=== PATIENT | male | born 1995 ===

== ENCOUNTER 2022-02-03 20:55 | Emergency (ER) | payer BC, OTHER ==
[2022-02-03 21:08] VITALS: O2SAT 99
--- NOTE | 2022-02-03 21:37 | ERPHSYRPT ---
- History of Present Illness Historian: patient Exam Limitations: no limitations Patient Subjective Stated Complaint: pt states "I have been having this chest pain for 3 days. I this type of pain last year and it was infection on my chest wall." Triage Nursing Assessment: pt ambulated into the er; pt is axo x4; c/o chest pain; pt states 6/10 pain to chest; clear apical pulse; clear lung sounds in all lobes; strong bebo radial pulse; strong bebo pedal pulse; hypertension; pt denies N/V/D; pt denies trauma to chest; Physician History: 27 yo M w mid-sternal chest pain x3 days. Pain does not radiate, is described as tightness, and is worse w deep breaths. It is 6/10 on scale, and he states that he had similar pain 1-2 years ago diagnosed as costochondritis at [facility]. He has mild dyspnea and denies N/V/diaphoresis. Pt denies HTN/DM/hyperlipidemia but does vape. Timing/Duration: other (3 days) Activities at Onset: rest Quality: tightness Location: substernal Chest Pain Radiation: no radiation Severity of Pain-Max: moderate Severity of Pain-Current: moderate Modifying Factors: Improves With: breathing Associated Symptoms: shortness of breath, hurts to breathe, No nausea, No vomiting, No palpitations, No heartburn, No abdominal pain, No cough, No diaphoresis, No chills, No fever, No fatigue, No weakness, No swelling/lump in chest, No syncope, No rash, No headache, No dizziness, No edema, No back pain Prior Chest Pain/Cardiac Workup: non-cardiac Nitro Today/Relief: no nitro taken today Aspirin Treatment Today: no aspirin today Allergies/Adverse Reactions: No Known Drug Allergies Allergy (Unverified 04/04/15 19:57) Hx Tetanus, Diphtheria Vaccination/Date Given: Yes Hx Influenza Vaccination/Date Given: No Hx Pneumococcal Vaccination/Date Given: No Immunizations Up to Date: Yes Travel Risk - International Travel Have you traveled outside of the country in past 3 weeks: No - Coronavirus Screening Are you exhibiting any of the following symptoms?: No Close contact with a COVID-19 positive Pt in past 14-21 Days: No - Vaccine Status Have you recieved a Covid-19 vaccination: No - Review of Systems Constitutional: No Symptoms Eyes: No Symptoms Ears, Nose, & Throat: No Symptoms Respiratory: No Symptoms, Dyspnea Cardiac: No Symptoms, Chest Pain Abdominal/Gastrointestinal: No Symptoms Genitourinary Symptoms: No Symptoms Musculoskeletal: No Symptoms Skin: No Symptoms Neurological: No Symptoms Psychological: No Symptoms Endocrine: No Symptoms Hematologic/Lymphatic: No Symptoms Immunological/Allergic: No Symptoms - Past Medical History Pertinent Past Medical History: No Neurological History: No Pertinent History ENT History: No Pertinent History Cardiac History: No Pertinent History Endocrine Medical History: No Pertinent History Musculoskeletal History: No Pertinent History GI Medical History: Other History: No Pertinent History Psycho-Social History: Anxiety, Depression Male Reproductive Disorders: No Pertinent History Other Medical History: PYLORIC STENOSIS - Past Surgical History Past Surgical History: Yes Neuro Surgical History: No Pertinent History Cardiac: No Pertinent History Respiratory: No Pertinent History Gastrointestinal: Other Genitourinary: No Pertinent History Musculoskeletal: Orthopedic Surgery Male Surgical History: No Pertinent History Other Surgical History: pyloric stenosis repair - deviated septum - Social History Smoking Status: Former smoker Exposure to second hand smoke: No Drug Use: none Patient Lives Alone: No - Nursing Vital Signs Nursing Vital Signs: Initial Vital Signs Temperature 98.7 F 02/03/22 20:57 Pulse Rate 88 02/03/22 20:57 Respiratory Rate 14 02/03/22 20:57 Blood Pressure 154/86 02/03/22 20:57 O2 Sat by Pulse Oximetry 99 02/03/22 20:57 Pain Scale Pain Intensity 4 Hypertensive - Physical Exam General Appearance: no apparent distress Eye Exam: PERRL/EOMI, eyes nml inspection Ears, Nose, Throat Exam: normal ENT inspection, TMs normal, pharynx normal, moist mucous membranes Neck Exam: normal inspection, non-tender, supple, full range of motion, No meningismus, No mass, No Brudzinski, No Kernig's Respiratory Exam: normal breath sounds, lungs clear, airway intact Cardiovascular Exam: regular rate/rhythm, normal heart sounds, normal peripheral pulses, capillary refill <2 sec, No murmur Gastrointestinal/Abdomen Exam: soft, normal bowel sounds, No tenderness Back Exam: normal inspection, normal range of motion, No CVA tenderness, No vertebral tenderness Extremity Exam: normal inspection, normal range of motion Neurologic Exam: alert, oriented x 3, cooperative, 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, normal mood/affect, nml cerebellar function, nml station & gait, sensation nml Skin Exam: normal color, warm, dry Lymphatic Exam: No adenopathy SpO2 Interpretation: normal SpO2: 99 O2 Delivery: Room Air - Course Nursing assessment & vital signs reviewed: Yes EKG Interpreted by Me: RATE (NSR/Rate88/Normal QT-QTc/Non-specific Twave abnormality/No acute ST changes) - Radiology Exams Chest X-ray Interpretation: Interpreted by me (CXR neg per Rad) Ordered Tests: Active Orders 24 hr Category Date Time Status EKG-ER Only STAT Care 02/03/22 21:24 Completed CHEST 1 VIEW (PORTABLE) Stat Exams 02/03/22 21:24 Taken CBC W DIFF Stat Lab 02/03/22 21:40 Completed CMP Stat Lab 02/03/22 21:40 Completed TROPONIN Q4H Lab 02/03/22 21:40 Completed Medication Summary Discontinued Medications Generic Name Dose Route Start Last Admin Trade Name Freq PRN Reason Stop Dose Admin Ketorolac Tromethamine 30 mg 02/03/22 22:18 02/03/22 22:20 Ketorolac Tromethamine 30 Mg/Ml Inj IM 02/03/22 22:19 30 mg STAT ONE Administration Ketorolac Tromethamine Confirm 02/03/22 22:19 Ketorolac Tromethamine 30 Mg/Ml Inj Administered 02/03/22 22:20 Dose 30 mg .ROUTE .STK-MED ONE Lab/Rad Data: Laboratory Result Diagrams 02/03/22 21:40 02/03/22 21:40 Laboratory Results 02/03/22 02/03/22 02/03/22 Range/Units 21:40 21:40 21:40 WBC 9.0 (4.0-10.5) x10^3/uL RBC 4.64 (4.1-5.6) x10^6/uL Hgb 13.1 (12.5-18.0) g/dL Hct 40.0 L (42-50) % MCV 86.2 (78-100) fL MCH 28.2 (26-32) pg MCHC 32.8 (32-36) g/dL RDW 12.5 (11.5-14.0) % Plt Count 310 (150-450) x10^3/uL MPV 8.7 (7.5-11.0) fL Gran % 74.1 H (36.0-66.0) % Immature Gran % (Auto) 0.4 (0.00-0.4) % Nucleat RBC Rel Count 0.0 (0.00-0.1) % Eos # (Auto) 0.23 (0-0.5) x10^3/uL Immature Gran # (Auto) 0.04 H (0.00-0.03) x10^3u/L Absolute Lymphs (auto) 1.34 (1.0-4.6) x10^3/uL Absolute Monos (auto) 0.68 (0.0-1.3) x10^3/uL Absolute Nucleated RBC 0.00 (0.00-0.01) x10^3u/L Lymphocytes % 14.8 L (24.0-44.0) % Monocytes % 7.5 (0.0-12.0) % Eosinophils % 2.5 (0.00-5.0) % Basophils % 0.7 (0.0-0.4) % Absolute Granulocytes 6.69 (1.4-6.9) x10^3/uL Basophils # 0.06 (0-0.4) x10^3/uL Sodium 141 (137-145) mmol/L Potassium 3.8 (3.5-5.1) mmol/L Chloride 102 (98-107) mmol/L Carbon Dioxide 32 H (22-30) mmol/L Anion Gap 10.2 (5-15) MEQ/L BUN 12 (9-20) mg/dL Creatinine 0.98 (0.66-1.25) mg/dL Estimated GFR > 60.0 ML/MIN Glucose 98 (74-106) mg/dL Calcium 9.2 (8.4-10.2) mg/dL Total Bilirubin 0.70 (0.2-1.3) mg/dL AST 30 (17-59) U/L ALT 40 (0-50) U/L Alkaline Phosphatase 56 (38-126) U/L Troponin I < 0.012 (0.000-0.034) ng/mL Serum Total Protein 8.0 (6.3-8.2) g/dL Albumin 4.7 (3.5-5.0) g/dL - Progress Progress Note: 02/03/22 22:19 30mg IM Toradol 02/03/22 22:40 BP decreased before discharge Counseled pt/family regarding: lab results, diagnosis, need for follow-up, rad results - Departure Departure Disposition: Home Clinical Impression: Chest wall pain Condition: Stable Critical Care Time: No Referrals: ALMA CLAYTON NP [Primary Care Provider] - Follow up/PCP as directed Instructions: Chest Pain (DC) Additional Instructions: Etodolac as needed for pain Return to ER for increasing pain, shortness of breath, or temperature greater than 100.5 Prescriptions: Etodolac 400 mg PO BID PRN PRN #14 tablet PRN Reason: Pain
[2022-02-03 21:42] LABS: Absolute Neutrophil Ct (ANC) 6.69 x10^3/uL (1.4-6.9); Basophil (Absolute #) 0.06 x10^3/uL (0-0.4); Eosinophil % 2.5 % (0.00-5.0); Eosinophil (Absolute #) 0.23 x10^3/uL (0-0.5); Hemoglobin 13.1 g/dL (12.5-18.0); Lymphocyte (Absolute #) 1.34 x10^3/uL (1.0-4.6); Lymphocytes % 14.8 % (24.0-44.0); Mean Cell Volume 86.2 fL (78-100); Mean Corpuscular Hemoglobin 28.2 pg (26-32); Mean Corpuscular Hgb Concent. 32.8 g/dL (32-36); Mean Platelet Volume 8.7 fL (7.5-11.0); Monocyte (Absolute #) 0.68 x10^3/uL (0.0-1.3); Monocytes % 7.5 % (0.0-12.0); Neutrophil % 74.1 % (36.0-66.0); Platelet Count 310 x10^3/uL (150-450); Red Blood Count 4.64 x10^6/uL (4.1-5.6); Red Cell Distribution Width 12.5 % (11.5-14.0)
[2022-02-03 22:03] LABS: ALBUMIN 4.7 g/dL (3.5-5.0); ALKALINE PHOSPHATASE 56 U/L (38-126); ANION GAP 10.2 MEQ/L (5-15); BLOOD UREA NITROGEN 12 mg/dL (9-20); CHLORIDE 102 mmol/L (98-107); Calcium 9.2 mg/dL (8.4-10.2); Carbon Dioxide 32 mmol/L (22-30); Creatinine 1 0.98 mg/dL (0.66-1.25); EST GLOMERULAR FILTRATION RATE > 60.0 ML/MIN; Glucose 98 mg/dL (74-106); Potassium 3.8 mmol/L (3.5-5.1); SGOT/AST 30 U/L (17-59); SGPT/ALT 40 U/L (0-50); SODIUM 141 mmol/L (137-145)
[2022-02-03] MEDS ORDERED: TORAdol 30 mg Injection IM ONE (22:18)
[2022-02-03] MEDS ORDERED: TORAdol 30 mg Injection ONE (22:19)
[2022-02-03 22:23] VITALS: BP 123/94; PULSE 90
--- NOTE | 2022-02-04 08:57 | XRAY ---
Indication: Chest pain. Comparison: None Portable chest demonstrates normal heart, lungs, and bony thorax with incidental tiny calcified granulomas.
== END 2022-02-03 22:32 | disposition home or self-care (01) ==
LOC: ED 20:55
DX: R07.89 Other chest pain (principal); R06.00 Dyspnea, unspecified; Z28.310 Unvaccinated for COVID-19
CPT/HCPCS: 36415; 71045; 80053; 84484; 85025; 93005; 96372; 99284; J1885

== ENCOUNTER 2022-09-17 02:13 | Emergency (ER) | payer BC, OTHER ==
[2022-09-17] MEDS ORDERED: ZOFRAN ODT 4 MG ONE (02:40)
[2022-09-17] MEDS ORDERED: ZOFRAN ODT 4 MG PO ONE (02:42)
[2022-09-17] MEDS ORDERED: MORPHINE SULFATE 4 MG INJ IV ONE (03:09)
[2022-09-17] MEDS ORDERED: PROTONIX 40 MG IV IV ONE ×2 (03:09→03:24)
[2022-09-17] MEDS ORDERED: Compazine 10 MG/2 ML IV ONE (03:09)
[2022-09-17] MEDS ORDERED: Sodium Chloride 0.9% 1000 ML 1,000 ML IV STA (03:09)
--- NOTE | 2022-09-17 03:10 | ERPHSYRPT ---
- History of Present Illness Time Seen by Provider: 09/17/22 02:40 Historian: patient, family Exam Limitations: no limitations Patient Subjective Stated Complaint: pt states I have been throwing up, having diarrhea, and chilling for the past 3 hours Triage Nursing Assessment: pt ambulated into the er; pt is axo x4; c/o vomiting; c/o N/V/D; mucus membrane pink and moist; no respiratory distress present; skin is PDW; vitals wnl Physician History: This is a 26-year-old male who has been vomiting for 3 hours and states that he is also had some diarrhea and he has left flank and left lower quadrant abdominal pain. He is never had anything like this before. His significant other ate the same food is seated and she does not have these types of symptoms. Patient denies shortness of breath and denies chest pain. He has not had a fever. He has not been exposed to individuals that he is aware has similar symptoms or flu diagnoses. Timing/Duration: today, worse Quality: aching Abdominal Pain Onset Location: LLQ, flank (Left) Severity of Pain-Max: moderate Severity of Pain-Current: moderate Modifying Factors: Improves With: vomiting Associated Symptoms: diarrhea, loss of appetite, nausea, vomiting, weakness, No chest pain, No neck pain Previous symptoms: no prior history Allergies/Adverse Reactions: No Known Drug Allergies Allergy (Verified 09/17/22 02:27) Hx Tetanus, Diphtheria Vaccination/Date Given: Yes Hx Influenza Vaccination/Date Given: No Hx Pneumococcal Vaccination/Date Given: No Travel Risk - International Travel Have you traveled outside of the country in past 3 weeks: No - Coronavirus Screening Are you exhibiting any of the following symptoms?: Yes Symptoms: Vomiting/Diarrhea, Headaches/Body Aches/Fatigue Close contact with a COVID-19 positive Pt in past 14-21 Days: No - Vaccine Status Have you recieved a Covid-19 vaccination: No - Review of Systems Constitutional: Weakness Eyes: No Symptoms Ears, Nose, & Throat: No Symptoms Respiratory: No Symptoms Cardiac: No Symptoms Abdominal/Gastrointestinal: Abdominal Pain, Nausea, Vomiting, Diarrhea, Appetite Changes Genitourinary Symptoms: No Symptoms Musculoskeletal: Arthralgias, Myalgias Skin: No Symptoms Neurological: No Symptoms Psychological: No Symptoms Endocrine: No Symptoms Hematologic/Lymphatic: No Symptoms Immunological/Allergic: No Symptoms All Other Systems: Reviewed and Negative - Past Medical History Pertinent Past Medical History: Yes Neurological History: No Pertinent History ENT History: No Pertinent History Cardiac History: No Pertinent History Respiratory History: No Pertinent History Endocrine Medical History: No Pertinent History Musculoskeletal History: No Pertinent History GI Medical History: Other History: No Pertinent History Psycho-Social History: Anxiety, Depression Male Reproductive Disorders: No Pertinent History Other Medical History: PYLORIC STENOSIS - Past Surgical History Past Surgical History: Yes Neuro Surgical History: No Pertinent History Cardiac: No Pertinent History Respiratory: No Pertinent History Gastrointestinal: Other Genitourinary: No Pertinent History Musculoskeletal: Orthopedic Surgery Male Surgical History: No Pertinent History Other Surgical History: pyloric stenosis repair - deviated septum - Social History Smoking Status: Former smoker Exposure to second hand smoke: No Drug Use: none Patient Lives Alone: No - Nursing Vital Signs Nursing Vital Signs: Initial Vital Signs Temperature 98.3 F 09/17/22 02:28 Pulse Rate 104 H 09/17/22 02:28 Respiratory Rate 16 09/17/22 02:28 Blood Pressure 106/81 09/17/22 02:28 O2 Sat by Pulse Oximetry 99 09/17/22 02:28 Pain Scale Pain Intensity 2 - Physical Exam General Appearance: mild distress, alert, anxiety Eye Exam: PERRL/EOMI, eyes nml inspection Ears, Nose, Throat Exam: normal ENT inspection, moist mucous membranes Neck Exam: normal inspection, non-tender, supple, full range of motion Respiratory Exam: normal breath sounds, lungs clear, airway intact, No chest tenderness, No respiratory distress Cardiovascular Exam: regular rate/rhythm, normal heart sounds, normal peripheral pulses Gastrointestinal/Abdomen Exam: soft, normal bowel sounds, tenderness (Left lower quadrant and left flank), guarding Rectal Exam: not done Back Exam: normal inspection, normal range of motion, CVA tenderness (Left), No vertebral tenderness Extremity Exam: normal inspection, normal range of motion, pelvis stable Neurologic Exam: alert, oriented x 3, cooperative, 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, normal mood/affect, nml cerebellar function, nml station & gait, sensation nml Skin Exam: normal color, warm, dry Lymphatic Exam: No adenopathy SpO2 Interpretation: normal SpO2: 99 O2 Delivery: Room Air - Course Nursing assessment & vital signs reviewed: Yes Ordered Tests: Active Orders 24 hr Category Date Time Status IV Insertion STAT Care 09/17/22 03:09 Active ABDOMEN AND PELVIS W/0 CONTRAS [CT] Stat Exams 09/17/22 03:21 Completed AMYLASE Stat Lab 09/17/22 03:50 Completed CBC W DIFF Stat Lab 09/17/22 03:50 Completed CMP Stat Lab 09/17/22 03:50 Completed CULTURE,URINE Stat Lab 09/17/22 03:16 Received LIPASE Stat Lab 09/17/22 03:50 Completed UA W/RFX UR CULTURE Stat Lab 09/17/22 03:16 Completed Medication Summary Discontinued Medications Generic Name Dose Route Start Last Admin Trade Name Freq PRN Reason Stop Dose Admin Sodium Chloride 1,000 mls @ 999 mls/hr 09/17/22 03:09 09/17/22 04:41 Sodium Chloride 0.9% 1000 Ml IV 09/17/22 04:09 Infused .Q1H1M STA Infusion Sodium Chloride Confirm 09/17/22 03:24 Sodium Chloride 0.9% 1000 Ml Administered 09/17/22 03:25 Dose 1,000 mls @ ud .ROUTE .STK-MED ONE Sodium Chloride 500 mls @ 500 mls/hr 09/17/22 05:01 09/17/22 05:10 Sodium Chloride 0.9% 500 Ml IV 09/17/22 06:00 500 mls/hr .Q1H ONE Administration Sodium Chloride Confirm 09/17/22 05:09 Sodium Chloride 0.9% 500 Ml Administered 09/17/22 05:10 Dose 500 mls @ ud IV .STK-MED ONE Morphine Sulfate 4 mg 09/17/22 03:09 09/17/22 03:29 Morphine Sulfate 4 Mg/Ml Injection IV 09/17/22 03:10 4 mg STAT ONE Administration Morphine Sulfate Confirm 09/17/22 03:24 Morphine Sulfate 4 Mg/Ml Injection Administered 09/17/22 03:25 Dose 4 mg .ROUTE .STK-MED ONE Ondansetron HCl 4 mg 09/17/22 02:42 09/17/22 02:46 Zofran 4 Mg/Udtablet Orally Disintegrating PO 09/17/22 02:43 4 mg STAT ONE Administration Ondansetron HCl Confirm 09/17/22 02:40 Zofran 4 Mg/Udtablet Orally Disintegrating Administered 09/17/22 02:41 Dose 4 mg .ROUTE .STK-MED ONE Pantoprazole Sodium 40 mg 09/17/22 03:09 09/17/22 03:28 Pantoprazole 40 Mg Vial IV 09/17/22 03:10 40 mg STAT ONE Administration Pantoprazole Sodium Confirm 09/17/22 03:24 Pantoprazole 40 Mg Vial Administered 09/17/22 03:25 Dose 40 mg IV .STK-MED ONE Prochlorperazine Edisylate 5 mg 09/17/22 03:09 09/17/22 03:29 Prochlorperazine Edisylate 10 Mg/2 Ml Vial IV 09/17/22 03:10 5 mg STAT ONE Administration Prochlorperazine Edisylate Confirm 09/17/22 03:24 Prochlorperazine Edisylate 10 Mg/2 Ml Vial Administered 09/17/22 03:25 Dose 10 mg .ROUTE .[facility] ONE Lab/Rad Data: Laboratory Result Diagrams 09/17/22 03:50 09/17/22 03:50 Laboratory Results 09/17/22 09/17/22 09/17/22 Range/Units 03:50 03:50 03:16 WBC 14.6 H (4.0-10.5) x10^3/uL RBC 5.00 (4.1-5.6) x10^6/uL Hgb 14.2 (12.5-18.0) g/dL Hct 41.9 L (42-50) % MCV 83.8 (78-100) fL MCH 28.4 (26-32) pg MCHC 33.9 (32-36) g/dL RDW 12.6 (11.5-14.0) % Plt Count 337 (150-450) x10^3/uL MPV 8.9 (7.5-11.0) fL Gran % 88.5 H (36.0-66.0) % Immature Gran % (Auto) 0.5 H (0.00-0.4) % Nucleat RBC Rel Count 0.0 (0.00-0.1) % Eos # (Auto) 0.02 (0-0.5) x10^3/uL Immature Gran # (Auto) 0.08 H (0.00-0.03) x10^3u/L Absolute Lymphs (auto) 0.73 L (1.0-4.6) x10^3/uL Absolute Monos (auto) 0.82 (0.0-1.3) x10^3/uL Absolute Nucleated RBC 0.00 (0.00-0.01) x10^3u/L Lymphocytes % 5.0 L (24.0-44.0) % Monocytes % 5.6 (0.0-12.0) % Eosinophils % 0.1 (0.00-5.0) % Basophils % 0.3 (0.0-0.4) % Absolute Granulocytes 12.90 H (1.4-6.9) x10^3/uL Basophils # 0.04 (0-0.4) x10^3/uL Sodium 141 (137-145) mmol/L Potassium 3.9 (3.5-5.1) mmol/L Chloride 101 (98-107) mmol/L Carbon Dioxide 28 (22-30) mmol/L Anion Gap 15.5 H (5-15) MEQ/L BUN 13 (9-20) mg/dL Creatinine 0.86 (0.66-1.25) mg/dL Estimated GFR > 60.0 ML/MIN Glucose 133 H (74-106) mg/dL Calcium 9.2 (8.4-10.2) mg/dL Total Bilirubin 0.80 (0.2-1.3) mg/dL AST 33 (17-59) U/L ALT 47 (0-50) U/L Alkaline Phosphatase 61 (38-126) U/L Serum Total Protein 9.0 H (6.3-8.2) g/dL Albumin 4.8 (3.5-5.0) g/dL Amylase 81 (30-110) U/L Lipase 58 (23-300) U/L Urine Color Yellow (Yellow) Urine Appearance Clear (Clear) Urine pH 8.5 A (4.6-8.0) Ur Specific [place] 1.025 (1.005-1.030) Urine Protein Trace A (Negative) Urine Glucose (UA) Negative (Negative) mg/dL Urine Ketones Negative (Negative) Urine Blood Negative (Negative) Urine Nitrite Negative (Negative) Urine Bilirubin Negative (Negative) Urine Urobilinogen 1.0 A (0.2) mg/dL Ur Leukocyte Esterase Trace A (Negative) U Hyaline Cast (Auto) NONE SEEN (0-2) /LPF Urine Microscopic RBC 0-2 (0-5) /HPF Urine Microscopic WBC 0-2 (0-5) /HPF Ur Epithelial Cells None Seen (None Seen) /HPF Urine Bacteria None Seen (None Seen) /HPF Urine Culture Reflexed YES (NO) Influenza Type A Ag (NEGATIVE) Influenza Type B Ag (NEGATIVE) RSV (PCR) (NEGATIVE) SARS-CoV-2 (PCR) (NEGATIVE) 09/17/22 Range/Units 02:15 WBC (4.0-10.5) x10^3/uL RBC (4.1-5.6) x10^6/uL Hgb (12.5-18.0) g/dL Hct (42-50) % MCV (78-100) fL MCH (26-32) pg MCHC (32-36) g/dL RDW (11.5-14.0) % Plt Count (150-450) x10^3/uL MPV (7.5-11.0) fL Gran % (36.0-66.0) % Immature Gran % (Auto) (0.00-0.4) % Nucleat RBC Rel Count (0.00-0.1) % Eos # (Auto) (0-0.5) x10^3/uL Immature Gran # (Auto) (0.00-0.03) x10^3u/L Absolute Lymphs (auto) (1.0-4.6) x10^3/uL Absolute Monos (auto) (0.0-1.3) x10^3/uL Absolute Nucleated RBC (0.00-0.01) x10^3u/L Lymphocytes % (24.0-44.0) % Monocytes % (0.0-12.0) % Eosinophils % (0.00-5.0) % Basophils % (0.0-0.4) % Absolute Granulocytes (1.4-6.9) x10^3/uL Basophils # (0-0.4) x10^3/uL Sodium (137-145) mmol/L Potassium (3.5-5.1) mmol/L Chloride (98-107) mmol/L Carbon Dioxide (22-30) mmol/L Anion Gap (5-15) MEQ/L BUN (9-20) mg/dL Creatinine (0.66-1.25) mg/dL Estimated GFR ML/MIN Glucose (74-106) mg/dL Calcium (8.4-10.2) mg/dL Total Bilirubin (0.2-1.3) mg/dL AST (17-59) U/L ALT (0-50) U/L Alkaline Phosphatase (38-126) U/L Serum Total Protein (6.3-8.2) g/dL Albumin (3.5-5.0) g/dL Amylase (30-110) U/L Lipase (23-300) U/L Urine Color (Yellow) Urine Appearance (Clear) Urine pH (4.6-8.0) Ur Specific [place] (1.005-1.030) Urine Protein (Negative) Urine Glucose (UA) (Negative) mg/dL Urine Ketones (Negative) Urine Blood (Negative) Urine Nitrite (Negative) Urine Bilirubin (Negative) Urine Urobilinogen (0.2) mg/dL Ur Leukocyte Esterase (Negative) U Hyaline Cast (Auto) (0-2) /LPF Urine Microscopic RBC (0-5) /HPF Urine Microscopic WBC (0-5) /HPF Ur Epithelial Cells (None Seen) /HPF Urine Bacteria (None Seen) /HPF Urine Culture Reflexed (NO) Influenza Type A Ag NEGATIVE (NEGATIVE) Influenza Type B Ag NEGATIVE (NEGATIVE) RSV (PCR) NEGATIVE (NEGATIVE) SARS-CoV-2 (PCR) NEGATIVE (NEGATIVE) - Progress Progress: improved, pain not gone completely, re-examined Progress Note: 09/17/22 06:02 CAT scan of the abdomen pelvis without contrast suggests proctocolitis This patient's medical issue is 1 of moderate complexity. Level of complexity and the work-up performed is determined by reviewing the patient's past medical history, medication list, drug allergy list and the history of present illness and the physical findings on examination. The work-up performed is placement of an intravenous line, infusion of normal saline solution, Zofran intravenously, Flagyl oral antibiotic, CBC, CMP, amylase, lipase, flu swabs. Patient refused strep swabs. CAT scan of the abdomen pelvis Counseled pt/family regarding: lab results, diagnosis, need for follow-up, rad results Medical Desision Making - Independent Historian Additional History obtained from: Spouse - Discussion of managment Agreed on:: Treatment plan, need for follow-up - Diagnostic Testing Diagnostic test were ordered, analyzed, and reviewed by me: Yes Radiological Interpretation: Reviewed by me, Teleradiologist Report - Risk of complications The pt has a mod risk of morbidity or mortality based on: Need for prescription drug management - Departure Departure Disposition: Home Clinical Impression: Proctocolitis, Vomiting and diarrhea Condition: Stable Critical Care Time: No Referrals: ALMA CLAYTON NP [Primary Care Provider] - Follow up/PCP as directed Additional Instructions: Drink plenty of clear liquids before advancing diet. Take your antibiotics as prescribed. Follow-up with your primary care physician for further evaluation management. Prescriptions: Promethazine HCl 25 mg [Phenergan 25 mg] 25 mg PO Q8H PRN PRN #9 tablet PRN Reason: Nausea/Vomiting Ciprofloxacin [Cipro 500 MG] 500 mg PO BID #14 tablet Metronidazole 500 mg [Flagyl 500 MG] 500 mg PO TID #21 tablet
[2022-09-17] MEDS ORDERED: Sodium Chloride 0.9% 1000 ML 1,000 ML ONE (03:24)
[2022-09-17] MEDS ORDERED: Compazine 10 MG/2 ML ONE (03:24)
[2022-09-17] MEDS ORDERED: MORPHINE SULFATE 4 MG INJ ONE (03:24)
[2022-09-17 03:28] LABS: INFLUENZA A NEGATIVE (NEGATIVE); INFLUENZA B NEGATIVE (NEGATIVE); RESPIRATORY SYNCTIAL VIRUS NEGATIVE (NEGATIVE); SARS-CoV-2 Xpert Express NEGATIVE (NEGATIVE)
[2022-09-17 03:52] LABS: BASOPHIL % 0.3 % (0.0-0.4); Basophil (Absolute #) 0.04 x10^3/uL (0-0.4); Eosinophil % 0.1 % (0.00-5.0); Eosinophil (Absolute #) 0.02 x10^3/uL (0-0.5); Hematocrit 41.9 % (42-50); Hemoglobin 14.2 g/dL (12.5-18.0); IMMATURE GRAN # 0.08 x10^3u/L (0.00-0.03); IMMATURE GRAN % 0.5 % (0.00-0.4); Lymphocyte (Absolute #) 0.73 x10^3/uL (1.0-4.6); Mean Cell Volume 83.8 fL (78-100); Mean Corpuscular Hemoglobin 28.4 pg (26-32); Mean Corpuscular Hgb Concent. 33.9 g/dL (32-36); Mean Platelet Volume 8.9 fL (7.5-11.0); Monocyte (Absolute #) 0.82 x10^3/uL (0.0-1.3); Monocytes % 5.6 % (0.0-12.0); Neutrophil % 88.5 % (36.0-66.0); Platelet Count 337 x10^3/uL (150-450); Red Cell Distribution Width 12.6 % (11.5-14.0); White Blood Count 14.6 x10^3/uL (4.0-10.5)
--- NOTE | 2022-09-17 03:56 | XRAY ---
CLINICAL HISTORY:Nausea, vomiting, diarrhea, left lower quadrant abdominal pain. Left flank pain; COMPARISON:None; TECHNIQUES:CT of the abdomen and pelvis was performed with axial images as well as sagittal and coronal reconstruction images without intravenous contrast; FINDINGS: The visualized lung bases appear unremarkable. The liver is normal in size, morphology, and position, with no intrahepatic or extrahepatic bile duct dilation. Unremarkable appearing gallbladder with no stones wall thickening or pericholecystic inflammatory changes or fluid. Unremarkable appearing pancreas. No pancreatic mass or ductal dilatation is seen. Unremarkable appearing spleen. The adrenal glands are normal. The kidneys appear unremarkable with no stones, cysts masses, or hydronephrosis. The ureters are normal with no stones. Unremarkable abdominal aorta without specific evidence of aneurysm or dissection. IVC is normal. The visualized distal esophagus appears unremarkable. The stomach appears unremarkable. Unremarkable appearing duodenum. Fecal loading in the colon was mild fat stranding around the rectum suggesting stercoral proctocolitis. No free air and no ascites. No free intraperitoneal air is seen. The bladder is unremarkable with no stones. No abdominal wall pathology is seen. IMPRESSION: Fecal loading in the colon was mild fat stranding around the rectum suggesting stercoral proctocolitis. Electronically Signed by: Power Haines MD. (09/17/2022 02:50:49 SIMULATION ENGINEER)
[2022-09-17 04:08] LABS: ALBUMIN 4.8 g/dL (3.5-5.0); ALKALINE PHOSPHATASE 61 U/L (38-126); AMYLASE 81 U/L (30-110); ANION GAP 15.5 MEQ/L (5-15); BLOOD UREA NITROGEN 13 mg/dL (9-20); CHLORIDE 101 mmol/L (98-107); Calcium 9.2 mg/dL (8.4-10.2); Carbon Dioxide 28 mmol/L (22-30); Creatinine 1 0.86 mg/dL (0.66-1.25); EST GLOMERULAR FILTRATION RATE > 60.0 ML/MIN; Glucose 133 mg/dL (74-106); LIPASE 58 U/L (23-300); Potassium 3.9 mmol/L (3.5-5.1); SGOT/AST 33 U/L (17-59); SGPT/ALT 47 U/L (0-50); SODIUM 141 mmol/L (137-145)
[2022-09-17 04:53] LABS: Appearance Clear (Clear); Bacteria None Seen /HPF (None Seen); Bilirubin Negative (Negative); Blood Negative (Negative); Epithelial Cells None Seen /HPF (None Seen); Glucose, Urine Negative (Negative); Hyaline Casts NONE SEEN /LPF (0-2); Ketones Negative (Negative); Leukocyte Esterase Trace (Negative); Nitrite Negative (Negative); Ph 8.5 (4.6-8.0); Protein,Urine Dip Trace (Negative); RBC 0-2 /HPF (0-5); Specific Gravity 1.025 (1.005-1.030); WBC 0-2 /HPF (0-5)
[2022-09-17 04:55] LABS: ADD URINE CULTURE? YES (NO)
[2022-09-17] MEDS ORDERED: Sodium Chloride 0.9% 500 ML 500 ML IV ONE ×2 (05:01→05:09)
[2022-09-17] MEDS ORDERED: Flagyl 500 MG PO ONE (06:07)
[2022-09-17] MEDS ORDERED: Flagyl 500 MG ONE (06:12)
[2022-09-17 06:21] VITALS: BP 98/60; PULSE 87; O2SAT 96
== END 2022-09-17 06:28 | disposition home or self-care (01) ==
LOC: ED 02:13
DX: K52.9 Noninfective gastroenteritis and colitis, unspecified (principal); R11.2 Nausea with vomiting, unspecified; R10.32 Left lower quadrant pain; Z28.310 Unvaccinated for COVID-19
CPT/HCPCS: 0241U; 36000; 36415; 74176; 80053; 81001; 82150; 83690; 85025; 87086; 96360; 96374; 99284; 96375; J2270; Q0162; A9270-GY